=== PATIENT | male | born 1940 | race Asian ===

== ENCOUNTER 2020-04-09 15:21 | Inpatient (IN) | payer MEDICARE, OTHER ==
[~2020-04-09] VITALS: Ht 165.1 cm; Wt 51.5 kg
[2020-04-09] MEDS ORDERED: ONDANSETRON PF 4 MG/2 ML VIAL. IVP ONE (16:00)
[2020-04-09] MEDS ORDERED: IV NORMAL SALINE 500ML 500 ML IV ONE (16:00)
[2020-04-09 16:12] LABS: BASO % 0 % (0-3); EOS % 0 % (0-3); HEMATOCRIT 34.2 % (39.0-53.0); HEMOGLOBIN 11.4 g/dL (13.0-17.5); LYMPH # 0.3 x10^3/uL (1.0-4.8); LYMPH % 2 % (24-48); MEAN CORPUSCULAR HEMOGLOBIN 34 pg (25-35); MEAN CORPUSCULAR HGB CONC 33 g/dL (31-37); MEAN CORPUSCULAR VOLUME 102 fL (79-100); MONO # 0.6 x10^3/uL (0.0-1.1); MONO % 5 % (0-9); NEUT # 10.9 x10^3uL (1.8-7.7); NEUT % 92 % (31-73); PLATELET COUNT 162 x10^3/uL (140-400); RED BLOOD COUNT 3.36 x10^6/uL (4.30-5.70); RED CELL DISTRIBUTION WIDTH 13.1 % (11.5-14.5); WHITE BLOOD COUNT 11.8 x10^3/uL (4.0-11.0)
--- NOTE | 2020-04-09 16:17 | PHYS DOC ---
Past History Past Medical History: CAD, Cancer, Diabetes, High Cholesterol, [place], Renal Failure, Other Additional Past Medical Histor: Cardiac (AGNES SOLORIO APRN) Past Surgical History: Appendectomy, Other Additional Past Surgical Histo: Cardiac STENT, peritoneal dialysis (AGNES SOLORIO APRN) Smoking: Non-smoker Alcohol Use: None Drug Use: None (AGNES SOLORIO APRN) General Adult EDM: Chief Complaint: NAUSEA/VOMITING/DIARRHEA HPI: HPI: Patient is a 79-year-old male who presents to the emergency department with chief complaint of nausea and vomiting today. Patient states that he has vomited 9 times of bright green liquid. He denies any hematemesis, abdominal pain, chest pain, palpitations, dizziness, shortness of breath, diarrhea, body aches, fever, fatigue, or loss of taste/smell. Patient reports that he does peritoneal dialysis every night and that last night his fluids drained clear like they usually do. Patient states that he does still produce some urine. He denies any dysuria, hematuria, or increased urinary frequency. The patient currently rates his pain a 0 out of 10. He states he has had some pain in his mid back but currently denies any pain. (AGNES SOLORIO APRN) Review of Systems: Review of Systems: Complete ROS is negative unless otherwise noted in HPI. (AGNES SOLORIO APRN) Current Medications: Current Meds: Current Medications Medications (Trade) Dose Ordered Sig/Dave Start Time Stop Time Status Last Admin Dose Admin Ondansetron HCl (Zofran) 4 mg 1X ONCE 04/09/20 16:00 04/09/20 16:01 UNV Sodium Chloride 500 ml @ 0 mls/hr 1X ONCE 04/09/20 16:00 04/09/20 16:01 UNV (AGNES SOLORIO APRN) Allergies: Allergies: Allergies Coded Allergies Type Severity Reaction Last Updated Verified No Known Drug Allergies 09/24/15 No (AGNES SOLORIO APRN) Physical Exam: PE: See Above Constitutional: Well developed, well nourished, no acute distress, non-toxic appearance. [] HENT: Normocephalic, atraumatic, bilateral external ears normal, nose normal, dry mucous membrane [] Eyes: PERRLA, EOMI, conjunctiva normal, no discharge. [] Neck: Normal range of motion, no stridor. [] Cardiovascular:Heart rate regular rhythm Lungs & Thorax: Respirations even and unlabored, no retractions, no respiratory distress Abdomen: soft, no tenderness, no palpable masses, no rebound tenderness, no guarding Skin: Warm, dry, no erythema, no rash, normal turgor. [] Back: No bony tenderness or deformity, no step-off, no CVA tenderness Extremities: No cyanosis, ROM intact, no edema. [] Neurologic: Alert and oriented X 3, no focal deficits noted. [] Psychologic: Affect normal, judgement normal, mood normal. [] (AGNES SOLORIO APRN) Current Patient Data: Vital Signs: Vital Signs Date Time Temp Pulse Resp B/P (MAP) Pulse Ox O2 Delivery O2 Flow Rate FiO2 04/09/20 15:27 97.5 81 16 138/69 (92) 100 Room Air (AGNES SOLORIO APRN) EKG: EK-sinus rhythm with a prolonged ID interval and left axis deviation with a left bundle branch block present, rate 79, no STEMI, read by Dr. Doshi [] (AGNES SOLORIO EXPLOITATION ANALYST) Radiology/Procedures: Radiology/Procedures: PROCEDURE: CHEST AP ONLY Exam: Chest one view INDICATION: Vomiting, back pain TECHNIQUE: Frontal view of the chest Comparisons: None FINDINGS: The cardiomediastinal silhouette and pulmonary vessels are within normal limits. The lung and pleural spaces are clear. IMPRESSION: No acute cardiopulmonary process.[] (AGNES SOLORIO EXPLOITATION ANALYST) Heart Score: HEART Score for Chest Pain: HEART Score for Chest Pain Response (Comments) Value History Slighlty/Non-Suspicious 0 ECG Nonspecific Repolarizatio 1 Age > 65 2 Risk Factors >3 Risk Factors or Hx CAD 2 Troponin < Normal Limit 0 Total 5 Course & Med Decision Making: Course & Med Decision Making Pertinent Labs and Imaging studies reviewed. (See chart for details) [id number] with Dr. Titus about the patient, we reviewed his lab results. I advised him that 500 mL of NS and 4 mg Zofran have been given in the ER and the patient is tolerating p.o. fluids now. Per Dr. Titus he would like to admit the patient overnight for nausea, vomiting, chronic renal failure, and PUI [] (AGNES SOLORIO APRN) [place] Disclaimer: Andi Disclaimer: This electronic medical record was generated, in whole or in part, using a voice recognition dictation system. (AGNES SOLORIO APRN) Departure Departure: Impression: Primary Impression: Person under investigation for COVID-19 Additional Impressions: Nausea & vomiting Qualified Codes: R11.2 - Nausea with vomiting, unspecified CRF (chronic renal failure) Qualified Codes: N18.9 - Chronic kidney disease, unspecified Disposition: ADMITTED INPT THIS HOSP Admitting Physician: Braxton Titus (AGNES SOLORIO APRN) Condition: STABLE Referrals: BRAXTON TITUS MD (PCP) Patient Instructions: Nausea and Vomiting, [id number] Additional Instructions: Fill prescriptions and use them as directed. Recommend clear fluids for the next 24 hours. Then you may advance to bland foods such as bananas, rice, applesauce, and dry toast. Follow-up with your primary care doctor in the next 1-2 days. Return to the emergency room if your symptoms worsen. Attending Signature Attending Signature I have reviewed the PA/AQUATICS DIRECTOR's note and plan of care. I was available for consultat ion as needed during the patient's visit in the emergency department. I agree with the clinical impression, plan, and disposition. (COLBY DOSHI DO) AGNES SOLORIO APRN Apr 09, 2020 16:17 COLBY DOSHI DO Apr 10, 2020 03:52
[2020-04-09 16:24] LABS: CALCIUM 9.5 mg/dL (8.5-10.1); GFR 9.1; POTASSIUM 3.5 mmol/L (3.5-5.1)
--- NOTE | 2020-04-09 16:28 | RAD ---
Exam: Chest one view INDICATION: Vomiting, back pain TECHNIQUE: Frontal view of the chest Comparisons: None FINDINGS: The cardiomediastinal silhouette and pulmonary vessels are within normal limits. The lung and pleural spaces are clear. IMPRESSION: No acute cardiopulmonary process. Electronically signed by: Cesar Fine MD (04/09/2020 4:25 PM) KIKE
[2020-04-09 16:46] LABS: ALBUMIN 3.7 g/dL (3.4-5.0); MAGNESIUM 1.8 mg/dL (1.8-2.4); TOTAL BILIRUBIN 0.4 mg/dL (0.2-1.0); TOTAL PROTEIN 7.4 g/dL (6.4-8.2)
--- NOTE | 2020-04-09 16:56 | EKG ---
[address] [address] Test Date: 2020-04-09 Test Time: 16:00:54 Pat Name: TARA POLLARD Department: Room: Gender: M Billet Header: MARVIN : 1940 Requested By: AGNES SOLORIO Order Number: [id number] Reading MD: Measurements Intervals [place] Rate: 79 P: 90 [place]: 218 QRS: -48 QRSD: 126 T: 107 QT: 414 QTc: 476 Interpretive Statements SINUS RHYTHM PROLONGED [place] INTERVAL ABNORMAL LEFT AXIS DEVIATION LEFT BUNDLE BRANCH BLOCK ABNORMAL ECG RI6.02 No previous ECG available for comparison
[2020-04-09 18:02] LABS: BILIRUBIN,URINE NEG (NEG); CLARITY,URINE CLEAR; COLOR,URINE YELLOW; GLUCOSE,URINE 500 mg/dL (NEG); NITRITE,URINE NEG (NEG); UROBILINOGEN,URINE 0.2 mg/dL (0.2 mg/dL)
[2020-04-09 18:03] LABS: BACTERIA,URINE 0 /HPF (0-FEW)
[2020-04-09] MEDS ORDERED: ONDANSETRON PF 4 MG/2 ML VIAL. IVP PRN (19:00)
[2020-04-09 22:12] VITALS: BP 157/68
[2020-04-09] MEDS ORDERED: ZOLPIDEM 5 MG TABLET. PO PRN (22:15)
--- NOTE | 2020-04-09 22:15 | NUR ---
Pt admitted to [facility] via EMS accompanied by ER staff. Pt ambulated from gurney to bed w/ supervision of staff. VS obtained and POC discussed w/ verbalized understanding. Pt had no complaints of pain but had extreme nausea. Pt vomited in basin during assessment. PRN Zofran given as indicated. called and home med list restarted. Will continue to monitor.
[2020-04-09] MEDS ORDERED: ASCO500C PO (22:27)
[2020-04-09] MEDS ORDERED: CALC0.2530 PO (22:27)
[2020-04-09] MEDS ORDERED: CARV6.253 PO (22:27)
[2020-04-09] MEDS ORDERED: SIMV40TA18 PO (22:27)
[2020-04-09] MEDS ORDERED: INSU100V13 SQ (22:27)
[2020-04-09] MEDS ORDERED: ASPI-630 PO (22:27)
[2020-04-09] MEDS ORDERED: PROC10TA57 IVP (22:27)
[2020-04-09] MEDS ORDERED: DEXTROSE 50% 25 GM / 50ML DISP.SYRIN. IV PRN (22:30)
[2020-04-09] MEDS: IV RINGERS SOLUTION,LACTATED 1,000 ML IV SCH (22:52)
[2020-04-09] MEDS ORDERED: PROCHLORPERAZINE 10 MG/2 ML VIAL. IV PRN (23:00)
[2020-04-10 03:55] VITALS: BP 134/60
[2020-04-10 05:47] VITALS: BP 127/65
[2020-04-10] MEDS: INSULIN LISPRO 300 UNITS/3 ML VIAL. SQ SCH ×2 (08:00→12:00)
[2020-04-10] MEDS ORDERED: CARVEDILOL 6.25 MG TABLET PO SCH (08:00)
[2020-04-10] MEDS ORDERED: CALCITRIOL 0.25 MCG CAPSULE PO SCH (09:00)
[2020-04-10] MEDS ORDERED: ASCORBIC ACID 500 MG TABLET PO SCH (09:00)
[2020-04-10] MEDS ORDERED: ASPIRIN CHEWABLE 81 MG TABLET. PO SCH (09:00)
[2020-04-10 10:39] VITALS: BP 103/57
[2020-04-10] MEDS: IV RINGERS SOLUTION,LACTATED 1,000 ML IV SCH (11:50)
--- NOTE | 2020-04-10 15:30 | NUR ---
STEFANI IS DISCHARGED HOME WITH SELF CARE. PATINETS IV IS REMOVED TELE MONITOR D/C'D. PATIENT IS STABLE AT TIME OF DISCHARGE. PT IS GIVEN DISCHARGE AND FOLLOW UP INSTRUCTIONS. PATIENT IS ESCORTED OFF UNIT ACCOMPANIED BY STAFF.
--- NOTE | 2020-04-10 18:19 | HP ---
ADMIT DATE: 04/09/2020 HISTORY OF PRESENT ILLNESS: An 79-year-old gentleman came in through the Emergency Room with severe nausea and vomiting. The patient in turn was unable to hold anything down. This patient has a history of peritoneal dialysis. He has chronic kidney disease stage 5. The patient was unable to keep things down. He did have bright green liquid coming up. The patient otherwise denied any abdominal pain or chest pain. He denied shortness of breath, diarrhea, body aches, loss of taste or smell. The patient otherwise did do his peritoneal dialysis the night before, but was due to it again today or early tomorrow. The patient otherwise was admitted for observation for IV fluids and obviously monitor his nausea and vomiting. PAST MEDICAL HISTORY: As noted, chronic kidney disease, heart attack, coronary artery disease, coronary stent, nausea, vomiting, heartburn, GERD, reproductive disorders, renal disease, he is on peritoneal dialysis, Wednesday, Wednesday, Wednesday and Wednesday, history of gout and type 2 diabetes. FAMILY HISTORY: Unknown. ALLERGIES: No known allergies noted. MEDICATIONS: The patient's medications include simvastatin 40, carvedilol 6.25, aspirin, Levemir 10, ascorbic acid, and Calcitriol. SOCIAL HISTORY: Denies smoking, alcohol or drug use. He is a full code. REVIEW OF SYSTEMS: As stated above in the HPI. Denies any melena, hematochezia, hematemesis, but does have severe nausea, vomiting, and unable to keep fluids down and unable to control his oral intake. PHYSICAL EXAMINATION: GENERAL: This is a very pleasant gentleman in no apparent distress. VITAL SIGNS: At the present time, blood pressure 130/60, respiratory rate 18, pulse 92 and afebrile, 97% on room air. HEENT: The patient's head was atraumatic and normocephalic. Eyes: PERRLA without jaundice. The mouth and throat were normal. NECK: Supple. LUNGS: Diminished. ABDOMEN: Soft, diffuse tenderness in the epigastric area, but no rebounding or guarding. Positive bowel sounds. No hepatosplenomegaly. No melena noted. EXTREMITIES: No clubbing, cyanosis, nor edema. NEUROLOGIC: The patient is alert and oriented x 3. LABORATORY DATA: White count 11.8, hemoglobin and hematocrit of 11 and 34. The patient's sodium and potassium of 144 and 3.5. BUN was elevated at 71 and 6. His cardiac enzymes were negative. The patient's urine did show specific gravity of greater than 1.030. IMPRESSION: Therefore of nausea, vomiting, and possible gastroenteritis, the patient's dehydration, chronic kidney disease stage V. PLAN: The patient will be admitted to the hospital for further evaluation and treatment and make further assessment with IV fluids and rehydration and monitor for any changes as such. LANDRY TITUS MD DR: SAILAJA/marley JOB#: [id number] / [id number]
[2020-04-10] MEDS ORDERED: INSULIN GLARGINE SYRINGE. SQ SCH (21:00)
[2020-04-10] MEDS ORDERED: NON FORMULARY ITEM (Insulin Detemir (Levemir) 10 UNIT) SQ SCH (21:00)
[2020-04-10] MEDS ORDERED: SIMVASTATIN 40 MG TABLET. PO SCH (21:00)
--- NOTE | 2020-04-12 14:04 | NUR ---
IP: attempt to notify patient of COVID result, left callback message.
--- NOTE | 2020-04-12 14:14 | NUR ---
IP: patient notified of COVID result.
== END 2020-04-10 15:30 | disposition home or self-care (01) | DRG 392 ==
LOC: ER 15:21 → 1 SOUTH 19:24 → OBSVTOIN 22:31
PROVIDERS: ADMIT Family Medicine; ATTEND Family Medicine
DX: A08.4 Viral intestinal infection, unspecified (principal); N18.5 Chronic kidney disease, stage 5; Z20.828 Contact with and (suspected) exposure to other viral communicable diseases; E11.22 Type 2 diabetes mellitus with diabetic chronic kidney disease; E86.0 Dehydration; K21.9 Gastro-esophageal reflux disease without esophagitis; M10.9 Gout, unspecified; E78.00 Pure hypercholesterolemia, unspecified; I25.10 Atherosclerotic heart disease of native coronary artery without angina pectoris; Z90.49 Acquired absence of other specified parts of digestive tract; Z95.5 Presence of coronary angioplasty implant and graft; I25.2 Old myocardial infarction; Z99.2 Dependence on renal dialysis
CPT/HCPCS: 36415; 71045; 80053; 81001; 82553; 82947; 83605; 83735; 84484; 85025; 93005; 96361; 96374; 96376; G0378; G0379; J1815; J2405; J7040; J7120; U0003; 99285-25

== ENCOUNTER 2020-06-28 11:12 | Emergency (ER) | payer MEDICARE, OTHER ==
[~2020-06-28] VITALS: Ht 165.1 cm; Wt 51.5 kg
[~2020-06-28 11:12] MED LIST: ASCO500C PO; ASPI-630 PO; CALC0.2530 PO; CARV6.253 PO; INSU100V13 SQ; PROC10TA57 IVP; SIMV40TA18 PO
[2020-06-28 11:58] LABS: BASO % 0 % (0-3); EOS % 0 % (0-3); HEMATOCRIT 36.3 % (39.0-53.0); HEMOGLOBIN 11.9 g/dL (13.0-17.5); LYMPH # 0.2 x10^3/uL (1.0-4.8); LYMPH % 2 % (24-48); MEAN CORPUSCULAR HEMOGLOBIN 34 pg (25-35); MEAN CORPUSCULAR HGB CONC 33 g/dL (31-37); MEAN CORPUSCULAR VOLUME 105 fL (79-100); MONO # 0.5 x10^3/uL (0.0-1.1); MONO % 4 % (0-9); NEUT # 11.9 x10^3uL (1.8-7.7); NEUT % 94 % (31-73); PLATELET COUNT 158 x10^3/uL (140-400); RED BLOOD COUNT 3.46 x10^6/uL (4.30-5.70); RED CELL DISTRIBUTION WIDTH 14.1 % (11.5-14.5); WHITE BLOOD COUNT 12.6 x10^3/uL (4.0-11.0)
[2020-06-28 12:01] LABS: CALCIUM 9.9 mg/dL (8.5-10.1); CREATININE 6.7 mg/dL (0.7-1.3); POTASSIUM 3.8 mmol/L (3.5-5.1)
[2020-06-28 12:06] LABS: ALBUMIN 3.8 g/dL (3.4-5.0); TOTAL BILIRUBIN 0.5 mg/dL (0.2-1.0); TOTAL PROTEIN 7.5 g/dL (6.4-8.2)
[2020-06-28 12:15] VITALS: BP 130/67
--- NOTE | 2020-06-28 12:55 | PHYS DOC ---
Past History Past Medical History: CAD, Cancer, Diabetes, High Cholesterol, [place], Renal Failure, Other Additional Past Medical Histor: Cardiac Past Surgical History: Appendectomy, Other Additional Past Surgical Histo: Cardiac STENT, peritoneal dialysis Smoking: Non-smoker Alcohol Use: None Drug Use: None Adult General Chief Complaint Chief Complaint: NAUSEA/VOMITING/DIARRHEA HPI HPI Patient is a 80-year-old male presents to the emergency department with a chief complaint of waking up this morning at approximately 530 with nausea, vomiting, lower left and lower right abdominal pain. Patient rated his pain a 10/10 on a 1-10 pain scale. Patient states he threw up 3 times noting yellow bile emesis small amount each time. Patient states he took 1 tablet of ODT Zofran 4 mg which relieved his nausea. Patient states at 730 this morning he had a large BM and then again at 830 this morning had another large BM which he noticed immediate relief of pain in his abdomen. Patient states he felt a little dizzy after his last BM but the dizziness resolved prior to arrival to the emergency department. Patient's states he feels "a lot better now "and states that if he felt like this at home he would have not considered coming to the emergency department today. Patient currently denies chest pain, shortness of breath, chest congestion, cough, nausea, vomiting, diarrhea, constipation. Patient denies rashes to the skin, denies body aches, loss of taste or loss of smell. Patient states he does peritoneal dialysis each night and has not noticed any problems with his dialysis fluid reporting it is running clear as normal. Patient reports a past medical history of chronic kidney disease stage V requiring peritoneal dialysis, [place], CAD, coronary stents, GERD, type 2 diabetes, past surgical history of peritoneal dialysis shunt, appendectomy. Patient denies history of cigarette smoking, EtOH consumption, illicit drug use. Review of Systems Review of Systems 14 body systems of review of systems have been reviewed. See HPI for pertinent positives and negative responses, otherwise all other systems are negative, nonpertinent or noncontributory. Allergies Allergies Allergies Coded Allergies Type Severity Reaction Last Updated Verified No Known Drug Allergies 09/24/15 No Physical Exam Physical Exam Constitutional: Well developed, well nourished, no acute distress, non-toxic appearance. HENT: Normocephalic, atraumatic, bilateral external ears normal, oropharynx moist, no oral exudates, nose normal. Eyes: PERRLA, EOMI, conjunctiva normal, no discharge. Neck: Normal range of motion, no tenderness, supple, no stridor. Cardiovascular:Heart rate regular rhythm, no murmur to auscultation. Lungs & Thorax: Bilateral breath sounds clear to auscultation all lung schmitz. Abdomen: Bowel sounds normal, soft, no tenderness, no masses, no pulsatile masses. Skin: Warm, dry, no erythema, no rash. Back: No tenderness, no CVA tenderness. Extremities: No tenderness, no cyanosis, no clubbing, ROM intact, no edema. Neurologic: Alert and oriented X 3, normal motor function, normal sensory function, no focal deficits noted. Psychologic: Affect normal, judgement normal, mood normal. Current Patient Data Vital Signs Vital Signs Date Time Temp Pulse Resp B/P (MAP) Pulse Ox O2 Delivery O2 Flow Rate FiO2 06/28/20 11:16 97.9 70 16 139/60 (86) 96 Room Air Lab Results Laboratory Tests Test 06/28/20 11:30 06/28/20 12:38 White Blood Count 12.6 x10^3/uL Red Blood Count 3.46 x10^6/uL Hemoglobin 11.9 g/dL Hematocrit 36.3 % Mean Corpuscular Volume 105 fL Mean Corpuscular Hemoglobin 34 pg Mean Corpuscular Hemoglobin Concent 33 g/dL Red Cell Distribution Width 14.1 % Platelet Count 158 x10^3/uL Neutrophils (%) (Auto) 94 % Lymphocytes (%) (Auto) 2 % Monocytes (%) (Auto) 4 % Eosinophils (%) (Auto) 0 % Basophils (%) (Auto) 0 % Neutrophils # (Auto) 11.9 x10^3uL Lymphocytes # (Auto) 0.2 x10^3/uL Monocytes # (Auto) 0.5 x10^3/uL Eosinophils # (Auto) 0.0 x10^3/uL Basophils # (Auto) 0.0 x10^3/uL Sodium Level 144 mmol/L Potassium Level 3.8 mmol/L Chloride Level 103 mmol/L Carbon Dioxide Level 23 mmol/L Anion Gap 18 Blood Urea Nitrogen 63 mg/dL Creatinine 6.7 mg/dL Estimated GFR (Cockcroft-Gault) 8.0 BUN/Creatinine Ratio 9 Glucose Level 188 mg/dL Calcium Level 9.9 mg/dL Total Bilirubin 0.5 mg/dL Aspartate Amino Transf (AST/SGOT) 17 U/L Alanine Aminotransferase (ALT/SGPT) 36 U/L Alkaline Phosphatase 52 U/L Total Protein 7.5 g/dL Albumin 3.8 g/dL Albumin/Globulin Ratio 1.0 Urine Collection Type Unknown Urine Color Yellow Urine Clarity Clear Urine pH 6.5 Urine Specific [place] 1.025 Urine Protein >100 mg/dl Urine Glucose (UA) >=1000 mg/dL Urine Ketones (Stick) Trace mg/dL Urine Blood Small Urine Nitrite Neg Urine Bilirubin Neg Urine Urobilinogen Dipstick 0.2 mg/dL Urine Leukocyte Esterase Neg Laboratory Tests Test 06/28/20 11:30 White Blood Count 12.6 x10^3/uL (4.0-11.0) H Red Blood Count 3.46 x10^6/uL (4.30-5.70) L Hemoglobin 11.9 g/dL (13.0-17.5) L Hematocrit 36.3 % (39.0-53.0) L Mean Corpuscular Volume 105 fL (79-100) H Mean Corpuscular Hemoglobin 34 pg (25-35) Mean Corpuscular Hemoglobin Concent 33 g/dL (31-37) Red Cell Distribution Width 14.1 % (11.5-14.5) Platelet Count 158 x10^3/uL (140-400) Neutrophils (%) (Auto) 94 % (31-73) H Lymphocytes (%) (Auto) 2 % (24-48) L Monocytes (%) (Auto) 4 % (0-9) Eosinophils (%) (Auto) 0 % (0-3) Basophils (%) (Auto) 0 % (0-3) Neutrophils # (Auto) 11.9 x10^3uL (1.8-7.7) H Lymphocytes # (Auto) 0.2 x10^3/uL (1.0-4.8) L Monocytes # (Auto) 0.5 x10^3/uL (0.0-1.1) Eosinophils # (Auto) 0.0 x10^3/uL (0.0-0.7) Basophils # (Auto) 0.0 x10^3/uL (0.0-0.2) Sodium Level 144 mmol/L (136-145) Potassium Level 3.8 mmol/L (3.5-5.1) Chloride Level 103 mmol/L (98-107) Carbon Dioxide Level 23 mmol/L (21-32) Anion Gap 18 (6-14) H Blood Urea Nitrogen 63 mg/dL (8-26) H Creatinine 6.7 mg/dL (0.7-1.3) H Estimated GFR (Cockcroft-Gault) 8.0 BUN/Creatinine Ratio 9 (6-20) Glucose Level 188 mg/dL (70-99) H Calcium Level 9.9 mg/dL (8.5-10.1) Total Bilirubin 0.5 mg/dL (0.2-1.0) Aspartate Amino Transferase (AST) 17 U/L (15-37) Alanine Aminotransferase (ALT) 36 U/L (16-63) Alkaline Phosphatase 52 U/L (46-116) Total Protein 7.5 g/dL (6.4-8.2) Albumin 3.8 g/dL (3.4-5.0) Albumin/Globulin Ratio 1.0 (1.0-1.7) EKG EKG [] Radiology/Procedures Radiology/Procedures [] Heart Score Risk Factors: Risk Factors: DM, Current or recent (<one month) smoker, HTN, HLP, family history of CAD, obesity. Risk Scores: Risk Factors: DM, Current or recent (<one month) smoker, HTN, HLP, family history of CAD, obesity. Course & Med Decision Making Course & Med Decision Making Pertinent Labs and Imaging studies reviewed. (See chart for details) 80-year-old male, vital signs reviewed, presents with concerns of nausea bilious vomiting and abdominal pain which resolved prior to arrival to the ER after taking 1 ODT 4 mg Zofran and having 2 large BMs. Patient was sent here by his primary care physician Dr. Zavala, patient's physical exam was unremarkable, will order CBC CMP and urinalysis assay. Pending results at this time. ED plan we will review patient current status, labs, and consult with patient's primary care physician. Patient's urine was not infected, however did show proteinuria and glucosuria most likely related to patient's type 2 diabetes, current blood glucose 188. Patient's white blood cell count was 12.8 without left shift, this is most likely to bilious vomiting from this morning. Patient's creatinine is 6.7 with BUN of 63, this is at baseline for his history of stage V ESRD with peritoneal dialysis. Upon reexamination of the patient, the patient continues to be nontoxic in appearance, states he would like to go home as he feels much better now. Called and discussed patient case with patient's primary care physician Dr. Zavala who agrees the patient can be discharged home. Patient gave verbal understanding of discharge home instructions, follow-up with Dr. Zavala soon, return to ER precautions and concerns, was discharged home without incident. Dragon Disclaimer Dragon Disclaimer This electronic medical record was generated, in whole or in part, using a voice recognition dictation system. Departure Departure: Impression: Primary Impression: Nausea & vomiting Additional Impression: CRF (chronic renal failure) Disposition: 01 DC HOME SELF CARE/HOMELESS Condition: GOOD Referrals: LANDRY TITUS MD (PCP) Patient Instructions: Nausea and Vomiting Additional Instructions: You were seen today in the emergency department for nausea vomiting abdominal pain. Your symptoms have resolved prior to arrival to the ER, however we did p erform blood lab work and a urinalysis, there were no concerning findings. Have expressed that you would like to go home. I discussed her case with your primary care physician Dr. Zavala who feels it is also safe for you to go home. Please return to the emergency department for any worsening symptoms or other concerns, keep your follow-up appointments with Dr. Zavala. EMERGENCY DEPARTMENT GENERAL DISCHARGE INSTRUCTIONS Thank you for coming to [facility] (ED) today and trusting us with you care. We trust that you had a positivie experience in our Emergency Department. If you wish to speak to the department management, you may call the director at [phone]. YOUR FOLLOW UP INSTRUCTIONS ARE FOLLOWS: 1. Do you have a private Doctor? If you do not have a private doctor, please ask for a resource list of physicians or clinics that may be able to assist you with follow up care. 2. The Emergency Physician has interpreted your x-rays. The X-Ray specialist will also review them. If there is a change in the findings, you will be notified in 48 hours when at all possible. 3. A lab test or culture has been done, your results will be reviewed and you will be notified if you need a change in treatment. ADDITIONAL INSTRUCTIONS AND INFORMATION: 1. Your care today has been supervised by a physician who is specially trained in emergency care. Many problems require more than one evaluation for a complete diagnosis and treatment. We recommend that you schedule your follow up appointment as recommended to ensure complete treatment of you illness or injury. If you are unable to obtain follow up care and continue to have a problem, or if your condition worsens, we recommend that you return to the ED. 2. We are not able to safely determine your condition over the phone nor are we able to give sound medical advice over the phone. For these safety reasons, if you call for medical advice we will ask you to come to the ED for further evaluation. 3. If you have any questions regarding these discharge instructions please call the ED at [phone]. SAFETY INFORMATION: In the interest of safety, wellness, and injury prevention; we encourage you to wear your sealbelt, if you smoke; quite smoking, and we encourage family to use a protective helmet for bicycling and other sporting events that present an increased risk for head injury. IF YOUR SYMPTOMS WORSEN OR NEW SYMPTOMS DEVELOP, OR YOU HAVE CONCERNS ABOUT YOUR CONDITION; OR IF YOUR CONDITION WORSENS WHILE YOU ARE WAITING FOR YOUR FOLLOW UP APPOINTMENT; EITHER CONTACT YOUR PRIMARY CARE DOCTOR, THE PHYSICIAN WHOSE NAME AND NUMBER YOU WERE GIVEN, OR RETURN TO THE ED IMMEDIATELY. Problem Qualifiers Primary Impression: Nausea & vomiting Vomiting type: bilious vomiting Qualified Codes: R11.14 - Bilious vomiting Additional Impression: CRF (chronic renal failure) Chronic kidney disease stage: stage 5 Qualified Codes: N18.5 - Chronic kidney disease, stage 5 COLBY CHRISTIANSON APRN Jun 28, 2020 12:55
[2020-06-28 12:57] LABS: BILIRUBIN,URINE NEG (NEG); CLARITY,URINE CLEAR; COLOR,URINE YELLOW; GLUCOSE,URINE >=1000 mg/dL (NEG); NITRITE,URINE NEG (NEG); UROBILINOGEN,URINE 0.2 mg/dL (0.2 mg/dL)
== END 2020-06-28 13:38 | disposition home or self-care (01) ==
LOC: ER 11:12
DX: E11.22 Type 2 diabetes mellitus with diabetic chronic kidney disease (principal); N18.9 Chronic kidney disease, unspecified; R11.2 Nausea with vomiting, unspecified; R42 Dizziness and giddiness; I25.10 Atherosclerotic heart disease of native coronary artery without angina pectoris; E78.00 Pure hypercholesterolemia, unspecified; I25.2 Old myocardial infarction
CPT/HCPCS: 36415; 80053; 81003; 85025; 99283

== ENCOUNTER 2020-09-06 13:30 | Emergency (ER) | payer MEDICARE, OTHER ==
[~2020-09-06] VITALS: Ht 167.6 cm; Wt 51.5 kg
[2020-09-06] MEDS ORDERED: ACETAMINOPHEN 500 MG TABLET PO ONE (13:45)
[2020-09-06] MEDS ORDERED: LIDOCAINE 2%/EPI 1:100,000 20 ML VIAL. IJ ONE (13:45)
[2020-09-06] MEDS ORDERED: BACITRACIN ZINC TOPICAL OINT PACKET. TP ONE (13:45)
--- NOTE | 2020-09-06 14:13 | RAD ---
EXAMINATION: CT HEAD/BRAIN WO (CT HEAD WITHOUT IV CONTRAST) CLINICAL HISTORY: Blunt head trauma, ground level fall TECHNIQUE: Serial axial images without IV contrast were obtained from the vertex to the foramen magnu m. CT Dose Reduction Employed: One or more of the following individualized dose reduction techniques wer e utilized for this examination: 1. Automated exposure control 2. Adjustment of the mA and/or kV ac cording to patient size 3. Use of iterative reconstruction technique. COMPARISON: 08/12/2018 FINDINGS: Acute Change: Large cutaneous defect along the right frontal scalp extending to the level of the calv arium, compatible with a laceration. Mild adjacent subcutaneous emphysema and minimal subcutaneous he matoma No evidence of an acute infarct or other acute parenchymal process. Hemorrhage: No evidence of acute intracranial hemorrhage. Mass Lesion/Mass Effect: No evidence of intracranial mass or extraaxial fluid collection. No signific ant mass effect. Chronic Change: Scattered patchy foci of hypoattenuation in the supratentorial white matter, nonspeci fic but likely represents mild microvascular ischemia. Atherosclerotic calcification of the anterior and posterior circulation. Parenchyma: Moderate generalized volume loss. Ventricles: Ventricular enlargement concordant with degree of parenchymal volume loss. Paranasal Sinuses and Skull Base: Visualized paranasal sinuses clear. Visualized skull base and soft tissues unremarkable. IMPRESSION: Large right frontal scalp laceration extending to the level of the calvarium. No evidence of acute intracranial abnormality. Electronically signed by: Dar Garcia DO (09/06/2020 2:11 PM) [facility]
[2020-09-06 14:19] VITALS: BP 149/61
[2020-09-06] MEDS ORDERED: DIPH,PERTUSS(ACELL),TET VAC/PF 0.5 ML SYRINGE. VAX IM ONE (14:30)
--- NOTE | 2020-09-06 14:36 | PHYS DOC ---
Past History Past Medical History: CAD, Cancer, Diabetes, High Cholesterol, NE, Renal Failure, Other Additional Past Medical Histor: Cardiac (COLBY CHRISTIANSON APRN) Past Surgical History: Appendectomy, Other Additional Past Surgical Histo: Cardiac STENT, peritoneal dialysis (COLBY CHRISTIANSON APRN) Smoking: Non-smoker Alcohol Use: None Drug Use: None (COLBY CHRISTIANSON APRN) Adult General Chief Complaint Chief Complaint: LACERATION/AVULSION HPI HPI Patient is a 80-year-old male presents emergency department via EMS after he stumbled over a rug on his front porch and fell forward against a plant hall lacerating his scalp. Patient denies loss of consciousness, patient denies neck pain. Patient states it bled a lot, he placed a bandage over the laceration, called EMS for transport to the emergency department. Patient denies any dizziness, denies visual disturbances. Patient denies any numbness or tingling down his extremities. Patient reports cannot recall when his last tetanus shot was received. Patient reports a past medical history of diabetes type 2, kidney disease requiring peritoneal dialysis, cardiac stent placement. Patient denies any other physical complaints or physical concerns. (COLBY CHRISTIANSON APRN) Review of Systems Review of Systems 14 body systems of review of systems have been reviewed. See HPI for pertinent positives and negative responses, otherwise all other systems are negative, nonpertinent or noncontributory. (COLBY CHRISTIANSON APRN) Current Medications Current Medications Current Medications Medications (Trade) Dose Ordered Sig/Dave Start Time Stop Time Status Last Admin Dose Admin Acetaminophen (Tylenol) 500 mg 1X ONCE 09/06/20 13:45 09/06/20 13:47 DC 09/06/20 14:04 500 MG Bacitracin (Bacitracin Topical Pkt) 1 pkt 1X ONCE 09/06/20 13:45 09/06/20 13:47 DC 09/06/20 14:05 1 PKT Diphtheria/ Pertussis/Tetanus Vacc (ADACEL TDap SYRINGE) 0.5 ml ONCE ONCE 09/06/20 14:30 09/06/20 14:31 DC Lidocaine/ Epinephrine (Xylocaine 2%-Epi 1:100,000) 20 ml 1X ONCE 09/06/20 13:45 09/06/20 13:47 DC 09/06/20 14:05 20 ML (COLBY CHRISTIANSON APRN) Allergies Allergies Allergies Coded Allergies Type Severity Reaction Last Updated Verified No Known Drug Allergies 09/24/15 No (COLBY CHRISTIANSON APRN) Physical Exam Physical Exam Constitutional: Well developed, well nourished, no acute distress, non-toxic appearance. 80-year-old male no apparent distress has bandage on scalp. HENT: Normocephalic, atraumatic, bilateral external ears normal, oropharynx moist, no oral exudates, nose normal. No skull depressions appreciated, see skin note for scalp laceration, no bruising or areas of ecchymosis appreciated. No snyder sign, no raccoon eyes, no drainage from external auditory canals appreciated. Eyes: PERRLA, EOMI, conjunctiva normal, no discharge. Neck: Normal range of motion, no tenderness, supple, no stridor. No midline spinal tenderness, no meningismus signs, no nuchal rigidity. Cardiovascular:Heart rate regular rhythm, no murmur, heart sounds S1-S2. Lungs & Thorax: Bilateral breath sounds clear to auscultation, no adventitious lung sounds appreciated. Abdomen: Bowel sounds normal, soft, no tenderness, no masses, no pulsatile masses. Skin: Warm, dry, no erythema, no rash. 10 cm ariza shaped full-thickness scalp laceration extending from frontal skull area extending into right parietal area, bleeding controlled. Back: No tenderness along vertebral column. Extremities: No tenderness, no cyanosis, no clubbing, ROM intact, no edema. Neurologic: Alert and oriented X 3, normal motor function, normal sensory function, no focal deficits noted. Psychologic: Affect normal, judgement normal, mood normal. (COLBY CHRISTIANSON APRN) EKG EKG [] (COLBY CHRISTIANSON APRN) Radiology/Procedures Radiology/Procedures PATIENT: TARA POLLARD ACCOUNT: [id number] : 1940 LOCATION: ER AGE: 80 SEX: M EXAM STATUS: REG ER ORD. PHYSICIAN: COLBY CHRISTIANSON APRN REASON: blunt head trauma, ground level fall PROCEDURE: CT HEAD WO CONTRAST EXAMINATION: CT HEAD/BRAIN WO (CT HEAD WITHOUT IV CONTRAST) CLINICAL HISTORY: Blunt head trauma, ground level fall TECHNIQUE: Serial axial images without IV contrast were obtained from the vertex to the foramen magnum. CT Dose Reduction Employed: One or more of the following individualized dose reduction techniques were utilized for this examination: 1. Automated exposure control 2. Adjustment of the mA and/or kV according to patient size 3. Use of iterative reconstruction technique. COMPARISON: 08/12/2018 FINDINGS: Acute Change: Large cutaneous defect along the right frontal scalp extending to the level of the calvarium, compatible with a laceration. Mild adjacent subcutaneous emphysema and minimal subcutaneous hematoma No evidence of an acute infarct or other acute parenchymal process. Hemorrhage: No evidence of acute intracranial hemorrhage. Mass Lesion/Mass Effect: No evidence of intracranial mass or extraaxial fluid collection. No significant mass effect. Chronic Change: Scattered patchy foci of hypoattenuation in the supratentorial white matter, nonspecific but likely represents mild microvascular ischemia. Atherosclerotic calcification of the anterior and posterior circulation. Parenchyma: Moderate generalized volume loss. Ventricles: Ventricular enlargement concordant with degree of parenchymal volume loss. Paranasal Sinuses and Skull Base: Visualized paranasal sinuses clear. Visualized skull base and soft tissues unremarkable. IMPRESSION: Large right frontal scalp laceration extending to the level of the calvarium. No evidence of acute intracranial abnormality. Electronically signed by: Dar Avery DO (09/06/2020 2:11 PM) [facility] DICTATED AND SIGNED BY: DAR AVERY DO DATE: 09/06/20 1404 CC: COLBY CHRISTIANSON APRN; LANDRY TITUS MD ~MTH0 0 (COLBY CHRISTIANSON APRN) Heart Score C/O Chest Pain: No Risk Factors: Risk Factors: DM, Current or recent (<one month) smoker, HTN, HLP, family history of CAD, obesity. Risk Scores: Risk Factors: DM, Current or recent (<one month) smoker, HTN, HLP, family history of CAD, obesity. (COLBY CHRISTIANSON APRN) Course & Med Decision Making Course & Med Decision Making Pertinent Labs and Imaging studies reviewed. (See chart for details) 80-year-old male, vital signs reviewed, presents emergency department with complaints of a scalp laceration after a trip and fall just prior to arrival. Physical examination concerning for scalp laceration, related to patient's age and striking head on object, will order CT head to rule out intracranial process, there was no C-spine tenderness or neck pain, CT C-spine deferred. Aditya carrillo's tetanus status was brought up-to-date today in the emergency department. See laceration repair note. CT head negative for acute intracranial process per house radiologist rotation. Related to patient's open scalp wound and past medical history, will treat prophylactically with Keflex 500 mg twice daily x10 days. Discussed CT findings with patient, discussed tetanus status brought up-to-date today with patient, discussed stapled skin wound care, follow-up with primary care in 7 days for staple removal, return to ER precautions or concerns. Patient gave verbal understanding of discharge home instructions, stapled wound care, valerie out in 7 days at primary care, return to ER precautions and concerns, patient was discharged home without incident. (COLBY CHRISTIANSON APRN) Dragon Disclaimer Dragon Disclaimer This electronic medical record was generated, in whole or in part, using a voice recognition dictation system. (COLBY CHRISTIANSON APRN) Attending Co-Sign The patient was seen and interviewed as well as examined at the bedside. The chart was reviewed. The case was discussed. Agree with the plan of care. (MARGARET GUALLPA DO) Departure Departure: Impression: Primary Impression: Scalp laceration Additional Impressions: Fall due to tripping on loose carpet Closed head injury Need for DTaP vaccination Disposition: 01 HOME / SELF CARE / HOMELESS Condition: GOOD Referrals: LANDRY TITUS MD (PCP) Patient Instructions: Diphtheria, Tetanus, Acellular Pertussis, Poliovirus Vaccine, Head Injury, Adult, Staple Wound Closure, [id number], Stitches, [place] or Skin Adhesive Strips, [id number] Additional Instructions: You're seen today in the emergency department for a slip and fall over carpet which caused a laceration to your scalp when you hit the plant stand. A CT was performed of your head, there were no concerning intracranial findings. You had a 10 cm banana-shaped laceration on your scalp, this was repaired with 19 valerie. The valerie require removal in 7 days, please call Dr. Titus's office to schedule an appointment to have your valerie removed. Your tetanus minimization status was brought up-to-date today in the emergency department, the medication you received is called DTaP. We discussed wound care, application of topical antibiotic ointment, and oral antibiotic to prevent any infectious process. Please take the oral antibiotic as prescribed, use the topical antibiotic ointment over stapled wound at least 3 times a day after cleansing. No swimming until the valerie have been removed. You may shower and wash with soap and water daily. Please return to the emergency department for worsening symptoms or other concerns. EMERGENCY DEPARTMENT GENERAL DISCHARGE INSTRUCTIONS Thank you for coming to [facility] (ED) today and trusting us with you care. We trust that you had a positivie experience in our Emergency Department. If you wish to speak to the department management, you may call the director at [phone]. YOUR FOLLOW UP INSTRUCTIONS ARE FOLLOWS: 1. Do you have a private Doctor? If you do not have a private doctor, please ask for a resource list of physicians or clinics that may be able to assist you with follow up care. 2. The Emergency Physician has interpreted your x-rays. The X-Ray specialist will also review them. If there is a change in the findings, you will be notified in 48 hours when at all possible. 3. A lab test or culture has been done, your results will be reviewed and you will be notified if you need a change in treatment. ADDITIONAL INSTRUCTIONS AND INFORMATION: 1. Your care today has been supervised by a physician who is specially trained in emergency care. Many problems require more than one evaluation for a complete diagnosis and treatment. We recommend that you schedule your follow up appointment as recommended to ensure complete treatment of you illness or injury. If you are unable to obtain follow up care and continue to have a problem, or if your condition worsens, we recommend that you return to the ED. 2. We are not able to safely determine your condition over the phone nor are we able to give sound medical advice over the phone. For these safety reasons, if you call for medical advice we will ask you to come to the ED for further evaluation. 3. If you have any questions regarding these discharge instructions please call the ED at [phone]. SAFETY INFORMATION: In the interest of safety, wellness, and injury prevention; we encourage you to wear your sealbelt, if you smoke; quite smoking, and we encourage family to use a protective helmet for bicycling and other sporting events that present an increased risk for head injury. IF YOUR SYMPTOMS WORSEN OR NEW SYMPTOMS DEVELOP, OR YOU HAVE CONCERNS ABOUT YOUR CONDITION; OR IF YOUR CONDITION WORSENS WHILE YOU ARE WAITING FOR YOUR FOLLOW UP APPOINTMENT; EITHER CONTACT YOUR PRIMARY CARE DOCTOR, THE PHYSICIAN WHOSE NAME AND NUMBER YOU WERE GIVEN, OR RETURN TO THE ED IMMEDIATELY. Scripts Bacitracin/Polymyxin B Sulfate (POLYSPORIN OINTMENT) 28.3 Gm Oint...g. 28.3 GM TP TID for scalp laceration, #1 MISC 0 Refills Prov: COLBY CHRISTIANSON APRN 09/06/20 Cephalexin (CEPHALEXIN) 500 Mg Capsule 1 CAP PO BID for scalp laceration, #20 CAP 0 Refills Prov: COLBY CHRISTIANSON APRN 09/06/20 Laceration Repair Lac Repair Indication: Scalp laceration Procedure: The patient was placed in the appropriate position and anesthesia around the laceration was achieved with 8 cc 2% lidocaine with epinephrine. . The area was then 240 cc pressurized normal saline, explored for foreign bodies, there were no foreign bodies appreciated. The laceration was closed with 19 dermal valerie. There were no additional lacerations. The wound area was then dressed with bacitracin. The patient's tetanus status was brought up-to-date today in the emergency department. Total repaired wound length: 10 cm banana-shaped. Other Items: The patient tolerated the procedure well. Complications: There were no complications. (COLBY CHRISTIANSON APRN) Problem Qualifiers Primary Impression: Scalp laceration Encounter type: initial encounter Qualified Codes: S01.01XA - Laceration without foreign body of scalp, initial encounter Additional Impressions: Closed head injury Encounter type: initial encounter Qualified Codes: S09.90XA - Unspecified injury of head, initial encounter COLBY CHRISTIANSON APRN September 06, 2020 14:36 MARGARET GUALLPA DO September 07, 2020 18:20
[2020-09-06] MEDS ORDERED: CEPH500C PO (14:58)
[2020-09-06] MEDS ORDERED: BACI28.34 TP (14:58)
== END 2020-09-06 15:09 | disposition home or self-care (01) ==
LOC: ER 13:30
DX: S01.01XA Laceration without foreign body of scalp, initial encounter (principal); Z23 Encounter for immunization; W01.0XXA Fall on same level from slipping, tripping and stumbling without subsequent striking against object, initial encounter; Y93.89 Activity, other specified; Y92.89 Other specified places as the place of occurrence of the external cause; Y99.8 Other external cause status
CPT/HCPCS: 12004; 70450; 90471; 90715; 99284-25

== ENCOUNTER 2020-10-04 15:02 | Emergency (ER) | payer MEDICARE, OTHER ==
[~2020-10-04] VITALS: Ht 167.6 cm; Wt 51.5 kg
[~2020-10-04 15:02] MED LIST changes: +BACI28.34 TP; +CEPH500C PO
[2020-10-04] MEDS ORDERED: ONDANSETRON PF 4 MG/2 ML VIAL. IVP ONE ×2 (15:45→17:30)
[2020-10-04 16:03] LABS: BASO % 0 % (0-3); EOS % 0 % (0-3); HEMATOCRIT 27.7 % (39.0-53.0); HEMOGLOBIN 9.2 g/dL (13.0-17.5); LYMPH # 0.2 x10^3/uL (1.0-4.8); LYMPH % 2 % (24-48); MEAN CORPUSCULAR HEMOGLOBIN 35 pg (25-35); MEAN CORPUSCULAR HGB CONC 33 g/dL (31-37); MEAN CORPUSCULAR VOLUME 106 fL (79-100); MONO # 0.8 x10^3/uL (0.0-1.1); MONO % 6 % (0-9); NEUT # 11.8 x10^3uL (1.8-7.7); NEUT % 92 % (31-73); PLATELET COUNT 153 x10^3/uL (140-400); RED BLOOD COUNT 2.62 x10^6/uL (4.30-5.70); RED CELL DISTRIBUTION WIDTH 15.1 % (11.5-14.5); WHITE BLOOD COUNT 12.9 x10^3/uL (4.0-11.0)
--- NOTE | 2020-10-04 16:09 | EKG ---
[address] [address] Test Date: 2020-10-04 Test Time: 15:44:03 Pat Name: TARA POLLARD Department: Room: Gender: M [employer] Mechanical Engineer: MARVIN : 1940 Requested By: STACEY COSBY Order Number: [id number] Reading MD: Measurements Intervals [place] Rate: 69 P: 56 SD: 208 QRS: -61 QRSD: 156 T: 100 QT: 434 QTc: 467 Interpretive Statements SINUS RHYTHM ABNORMAL LEFT AXIS DEVIATION LEFT BUNDLE BRANCH BLOCK ABNORMAL ECG RI6.02 No previous ECG available for comparison
[2020-10-04 16:11] LABS: CALCIUM 10.1 mg/dL (8.5-10.1); CREATININE 9.4 mg/dL (0.7-1.3); GFR 5.4; POTASSIUM 3.7 mmol/L (3.5-5.1)
[2020-10-04 16:17] LABS: ALBUMIN 3.4 g/dL (3.4-5.0); ALBUMIN/GLOBULIN RATIO 0.9 (1.0-1.7); TOTAL BILIRUBIN 0.4 mg/dL (0.2-1.0); TOTAL PROTEIN 7.1 g/dL (6.4-8.2)
--- NOTE | 2020-10-04 16:20 | PHYS DOC ---
Past History Past Medical History: Anemia, Diabetes, Renal Failure Additional Past Medical Histor: Cardiac (STACEY COSBY APRN) Past Surgical History: Appendectomy, Other Additional Past Surgical Histo: Cardiac STENT, peritoneal dialysis (STACEY COSBY APRN) Smoking: Non-smoker Alcohol Use: None Drug Use: None (STACEY COSBY APRN) General Adult EDM: Chief Complaint: NAUSEA/VOMITING/DIARRHEA HPI: HPI: Patient is a 80-year-old male who presents with nausea and vomiting since this morning. Patient states he is come to the ER for the same issue 3 times this year. Patient states "I have never had to been hospitalized for it once they give me medicine I feel better". Patient denies fevers, diarrhea, recent illness. Patient denies abdominal pain. Patient has history of anemia, renal failure, diabetes. (STACEY COSBY APRN) Review of Systems: Review of Systems: Constitutional: Denies fever or chills Eyes: Denies change in visual acuity HENT: Denies nasal congestion or sore throat Respiratory: Denies cough or shortness of breath Cardiovascular: Denies chest pain or edema GI: Denies abdominal pain. Reports nausea, vomiting. denies bloody stools or diarrhea : Denies dysuria Musculoskeletal: Denies back pain or joint pain Integument: Denies rash Neurologic: Denies headache, focal weakness or sensory changes Endocrine: Denies polyuria or polydipsia Lymphatic: Denies swollen glands Psychiatric: Denies depression or anxiety (STACEY COSBY APRN) Current Medications: Current Meds: Current Medications Medications (Trade) Dose Ordered Sig/[facility] Start Time Stop Time Status Last Admin Dose Admin Ondansetron HCl (Zofran) 4 mg 1X ONCE 10/04/20 15:45 10/04/20 15:46 DC 10/04/20 15:58 4 MG (STACEY COSBY APRN) Allergies: Allergies: Allergies Coded Allergies Type Severity Reaction Last Updated Verified No Known Drug Allergies 09/24/15 No (STACEY COSBY APRN) Physical Exam: PE: Constitutional: Well developed, well nourished, no acute distress, non-toxic appearance. HENT: Normocephalic, bilateral external ears normal, no oral exudates, nose normal. Eyes: PERRLA, EOMI, conjunctiva normal, no discharge. Neck: Normal range of motion, no tenderness, supple Cardiovascular:Heart rate regular rhythm, no murmur Lungs & Thorax: Bilateral breath sounds clear to auscultation Abdomen: Bowel sounds normal, soft, no tenderness. Skin: Warm, dry, no erythema, no rash. Back: No tenderness, no CVA tenderness. Extremities: No tenderness, ROM intact, no edema. Neurologic: Alert and oriented X 3, normal motor function, normal sensory function, no focal deficits noted. Psychologic: Affect normal, judgement normal, mood normal. (STACEY COSBY WAFER FABRICATOR) Current Patient Data: Labs: Laboratory Tests Test 10/04/20 15:45 White Blood Count 12.9 x10^3/uL (4.0-11.0) H Red Blood Count 2.62 x10^6/uL (4.30-5.70) L Hemoglobin 9.2 g/dL (13.0-17.5) L Hematocrit 27.7 % (39.0-53.0) L Mean Corpuscular Volume 106 fL (79-100) H Mean Corpuscular Hemoglobin 35 pg (25-35) Mean Corpuscular Hemoglobin Concent 33 g/dL (31-37) Red Cell Distribution Width 15.1 % (11.5-14.5) H Platelet Count 153 x10^3/uL (140-400) Neutrophils (%) (Auto) 92 % (31-73) H Lymphocytes (%) (Auto) 2 % (24-48) L Monocytes (%) (Auto) 6 % (0-9) Eosinophils (%) (Auto) 0 % (0-3) Basophils (%) (Auto) 0 % (0-3) Neutrophils # (Auto) 11.8 x10^3uL (1.8-7.7) H Lymphocytes # (Auto) 0.2 x10^3/uL (1.0-4.8) L Monocytes # (Auto) 0.8 x10^3/uL (0.0-1.1) Eosinophils # (Auto) 0.0 x10^3/uL (0.0-0.7) Basophils # (Auto) 0.0 x10^3/uL (0.0-0.2) Vital Signs: Vital Signs Date Time Temp Pulse Resp B/P (MAP) Pulse Ox O2 Delivery O2 Flow Rate FiO2 10/04/20 15:10 98.4 74 18 153/68 (96) 98 Room Air (STACEY COSBY APRN) EKG: EKG: [] Sinus rhythm, left bundle branch block, heart rate 69 bpm. (STACEY COSBY APRN) Radiology/Procedures: Radiology/Procedures: []CT ABDOMEN+PELVIS WO INDICATION: nausea/ vomiting, r/o obstruction EXAM: Noncontrast CT of the abdomen and pelvis. Coronal and sagittal reformatted images were performed. PQRS compliance statement: One or more of the following individualized dose reduction techniques were util ized for this examination: 1. Automated exposure control 2. Adjustment of the mA and/or kV according to patient size 3. Use of iterative reconstruction technique COMPARISON: 07/16/2018 FINDINGS: Lower chest: The visualized lower lungs are aerated. No pleural or pericardial effusion. ABDOMEN: Percutaneous catheter coiled in the pelvis. Mild abdominopelvic free fluid. Liver: The noncontrast liver is homogeneous in attenuation. Gallbladder and biliary: Normal gallbladder without radiopaque stone. Normal caliber bile ducts. Spleen: Normal spleen. Pancreas: The noncontrast pancreas is homogeneous in attenuation without peripancreatic inflammatory changes. Adrenal glands: Normal adrenal glands. Kidneys and ureters: No opaque urinary calculi. Normal kidneys and ureters. GI tract: Stomach is distended with fluid and gas. Signal of small bowel extending partially into a left inguinal hernia. Proximal to the hernia, small bowel is dilated measuring up to 3.5 cm in diameter. Distal to the hernia small bowel is decompressed. Colon is decompressed. Appendectomy. Vascular structures: Normal caliber abdominal aorta. Diffuse aortoiliac at herosclerotic disease. Lymph nodes: No lymphadenopathy in the abdomen or pelvis. PELVIS: Genitourinary system: Urinary bladder is partially distended. SKELETAL STRUCTURES AND SOFT TISSUES: Degenerative changes of the spine. IMPRESSION: Small bowel obstruction with transition point at a segment of small bowel extending into the patient's left inguinal hernia. (STACEY COSBY APRN) Heart Score: C/O Chest Pain: No Risk Factors: Risk Factors: DM, Current or recent (<one month) smoker, HTN, HLP, family history of CAD, obesity. Risk Scores: Score 0 - 3: 2.5% MACE over next 6 weeks - Discharge Home Score 4 - 6: 20.3% MACE over next 6 weeks - Admit for Clinical Observation Score 7 - 10: 72.7% MACE over next 6 weeks - Early Invasive Strategies (STACEY COSBY APRN) Course & Med Decision Making: Course & Med Decision Making Pertinent Labs and Imaging studies reviewed. (See chart for details) [] 80-year-old male presents with nausea and vomiting since 1 AM. Patient has been seen for the same symptoms 3 different times this year. Patient states when he takes Zofran the problem resolves. Patient is afebrile. Hemodynamically stable. Denies abdominal pain or dysuria. Denies recent illness. Patient given Zofran for nausea. WBC is mildly elevated at 12.9. BUN and creatinine elevated due to dialysis. Went in to reassess patient's nausea, patient reported that he felt much better and symptoms have improved. Prior to me leaving the room patient started having nausea again, and began vomiting. CT of abdomen and pelvis ordered to rule out possible obstruction, acute abnormalities. Patient is still denying any abdominal pain. Patient given second dose of Zofran and Pepcid. CT of abdomen and pelvis shows a small bowel obstruction. NG tube ordered. Patient started on LR at 100 mls an hour. Spoke with and transferring to [place] due to dialysis and possible surgical consultation. Explained to patient and of admission plan. Patient and are okay with transfer to [place]. Patient will be admitted to [place] with small bowel obstruction. Transfer of patient care to @2014 (STACEY COSBY APRN) Course & Med Decision Making Did not see or evaluate patient. Agree with EDUCATION INTERN's work-up and disposition per note. (BSESY VELEZ MD) Dragon Disclaimer: Dragon Disclaimer: This electronic medical record was generated, in whole or in part, using a voice recognition dictation system. (STACEY COSBY APRN) Departure Departure: Impression: Primary Impression: Small bowel obstruction Additional Impression: Nausea & vomiting Qualified Codes: R11.2 - Nausea with vomiting, unspecified Disposition: 02 SHORT TERM HOSPITAL Admitting Physician: Olga Abreu (STACEY COSBY APRN) Condition: STABLE Referrals: LANDRY TITUS MD (PCP) STACEY COSBY APRN Oct 04, 2020 16:20 BESSY VELEZ MD Oct 04, 2020 22:50
[2020-10-04 16:47] LABS: BILIRUBIN,URINE NEG (NEG); CLARITY,URINE CLEAR; COLOR,URINE YELLOW; GLUCOSE,URINE 500 mg/dL (NEG); NITRITE,URINE NEG (NEG); UROBILINOGEN,URINE 0.2 mg/dL (0.2 mg/dL)
[2020-10-04 16:48] LABS: BACTERIA,URINE 0 /HPF (0-FEW); RBC,URINE OCC /HPF (0-2); SQUAMOUS EPITHELIAL CELL,UR OCC /LPF
[2020-10-04] MEDS ORDERED: FAMOTIDINE 20 MG/2 ML VIAL ONE (17:24)
[2020-10-04] MEDS ORDERED: FAMOTIDINE 20 MG/2 ML VIAL IVP ONE (17:30)
--- NOTE | 2020-10-04 18:03 | RAD ---
CT ABDOMEN+PELVIS WO INDICATION: nausea/ vomiting, r/o obstruction EXAM: Noncontrast CT of the abdomen and pelvis. Coronal and sagittal reformatted images were perform ed. PQRS compliance statement: One or more of the following individualized dose reduction techniques were utilized for this examinat ion: 1. Automated exposure control 2. Adjustment of the mA and/or kV according to patient size 3. Use of iterative reconstruction technique COMPARISON: 07/16/2018 FINDINGS: Lower chest: The visualized lower lungs are aerated. No pleural or pericardial effusion. ABDOMEN: Percutaneous catheter coiled in the pelvis. Mild abdominopelvic free fluid. Liver: The noncontrast liver is homogeneous in attenuation. Gallbladder and biliary: Normal gallbladder without radiopaque stone. Normal caliber bile ducts. Spleen: Normal spleen. Pancreas: The noncontrast pancreas is homogeneous in attenuation without peripancreatic inflammatory changes. Adrenal glands: Normal adrenal glands. Kidneys and ureters: No opaque urinary calculi. Normal kidneys and ureters. GI tract: Stomach is distended with fluid and gas. Signal of small bowel extending partially into a l eft inguinal hernia. Proximal to the hernia, small bowel is dilated measuring up to 3.5 cm in diamete r. Distal to the hernia small bowel is decompressed. Colon is decompressed. Appendectomy. Vascular structures: Normal caliber abdominal aorta. Diffuse aortoiliac atherosclerotic disease. Lymph nodes: No lymphadenopathy in the abdomen or pelvis. PELVIS: Genitourinary system: Urinary bladder is partially distended. SKELETAL STRUCTURES AND SOFT TISSUES: Degenerative changes of the spine. IMPRESSION: Small bowel obstruction with transition point at a segment of small bowel extending into the patient' s left inguinal hernia. Electronically signed by: Andrew Knox MD (10/04/2020 6:01 PM) [facility]
[2020-10-04] MEDS ORDERED: IV RINGERS SOLUTION,LACTATED 1,000 ML IV ONE ×2 (19:30)
[2020-10-04] MEDS ORDERED: LIDOCAINE 2% TOPICAL JELLY 5GM TUBE. TP ONE (20:27)
[2020-10-04 22:15] VITALS: BP 134/59
== END 2020-10-04 22:18 | disposition short-term general hospital (02) ==
LOC: ER 15:02
DX: K56.609 Unspecified intestinal obstruction, unspecified as to partial versus complete obstruction (principal); E11.9 Type 2 diabetes mellitus without complications
CPT/HCPCS: 36415; 74176; 80053; 81001; 82947; 83690; 85025; 93005; 96374; 96375; 96376; 99285; J2405; J3490